=== PATIENT | female | born 1950 | race Caucasian/White ===

== ENCOUNTER 2016-10-25 17:02 | Emergency (ER) | payer OTHER ==
[2016-10-25] MEDS ORDERED: POTASSIUM BICARB 25 MEQ TABLET PO STA (18:35)
[2016-10-25] MEDS ORDERED: POTASSIUM BICARB 25 MEQ TABLET PO ONE (18:44)
[2016-10-25] MEDS ORDERED: CEPHALEXIN 250 MG CAPSULE PO STA (19:05)
[2016-10-25] MEDS ORDERED: CEPHALEXIN 250 MG CAPSULE PO ONE (19:13)
== END 2016-10-25 19:26 | disposition home or self-care (01) ==
DX: L03.313 Cellulitis of chest wall (principal); C50.919 Malignant neoplasm of unspecified site of unspecified female breast; E03.9 Hypothyroidism, unspecified; G62.9 Polyneuropathy, unspecified
CPT/HCPCS: 36415; 80053; 83605; 83690; 85025; 87040; 99283; A9270

== ENCOUNTER 2017-05-30 09:03 | Outpatient (CLI) | payer OTHER ==
[2017-05-30 09:24] LABS: BASOPHILS % (AUTO) 0.9 %; EOSINOPHILS # (AUTO) 0.2 10^3/uL (0.0-0.7); EOSINOPHILS % (AUTO) 3.9 %; HCT - HEMATOCRIT 37.8 % (37.0-47.0); LYMPHOCYTES # (AUTO) 1.1 10^3/uL (1.5-3.5); MEAN CORPUSCULAR HEMOGLOBIN 30.2 pg (27.0-31.0); MEAN CORPUSCULAR HGB CONC 34.5 g/dL (32.0-36.0); MEAN CORPUSCULAR VOLUME 87.5 fL (81.0-99.0); MONOCYTES # (AUTO) 0.5 10^3/uL (0.0-1.0); MONOCYTES % (AUTO) 10.7 %; NEUTROPHILS # (AUTO) 2.7 10^3/uL (1.5-6.6); NEUTROPHILS % (AUTO) 59.5 %; RED BLOOD COUNT 4.32 10^6/uL (4.20-5.40); RED CELL DISTRIBUTION WIDTH 15.3 % (12.0-15.0); UNCORRECTED WHITE BLOOD COUNT 4.6 x10^3/uL; WHITE BLOOD COUNT 4.6 x10^3/uL (4.8-10.8)
[2017-05-30 09:36] LABS: ALBUMIN/GLOBULIN RATIO 1.4 (1.0-2.2); BILIRUBIN,TOTAL 0.8 mg/dL (0.2-1.0); CALCIUM 9.8 mg/dL (8.5-10.3); CREATININE 0.7 mg/dL (0.4-1.0); POTASSIUM 3.4 mmol/L (3.5-5.0); TOTAL PROTEIN 7.4 g/dL (6.7-8.2)
== END 2017-05-30 09:04 | disposition home or self-care (01) ==
LOC: LAB 09:03
PROVIDERS: ATTEND Internal Medicine Hematology & Oncology
DX: C50.911 Malignant neoplasm of unspecified site of right female breast (principal); G60.9 Hereditary and idiopathic neuropathy, unspecified; N39.0 Urinary tract infection, site not specified
CPT/HCPCS: 36415; 80053; 85025

== ENCOUNTER 2018-02-06 07:34 | Outpatient (CLI) | payer OTHER ==
[2018-02-06 07:48] LABS: BASOPHILS % (AUTO) 0.8 %; EOSINOPHILS # (AUTO) 0.1 10^3/uL (0.0-0.7); EOSINOPHILS % (AUTO) 3.4 %; HGB - HEMOGLOBIN 13.6 g/dL (12.0-16.0); LYMPHOCYTES # (AUTO) 1.2 10^3/uL (1.5-3.5); LYMPHOCYTES % (AUTO) 28.2 %; MEAN CORPUSCULAR HEMOGLOBIN 30.7 pg (27.0-31.0); MEAN CORPUSCULAR HGB CONC 34.2 g/dL (32.0-36.0); MEAN CORPUSCULAR VOLUME 89.7 fL (81.0-99.0); MEAN PLATELET VOLUME 8.5 fL (7.9-10.8); MONOCYTES # (AUTO) 0.4 10^3/uL (0.0-1.0); MONOCYTES % (AUTO) 9.1 %; NEUTROPHILS # (AUTO) 2.5 10^3/uL (1.5-6.6); NEUTROPHILS % (AUTO) 58.5 %; PLT - PLATELET COUNT 139 10^3/uL (130-450); RED BLOOD COUNT 4.42 10^6/uL (4.20-5.40); RED CELL DISTRIBUTION WIDTH 13.2 % (12.0-15.0); WHITE BLOOD COUNT 4.3 x10^3/uL (4.8-10.8)
[2018-02-06 08:18] LABS: HB2 TOTAL 14.6 g/dL; HEMOGLOBIN A1C 0.65 g/dL; HEMOGLOBIN A1C % 6.2 % (4.6-6.2)
[2018-02-06 08:44] LABS: ALBUMIN/GLOBULIN RATIO 1.2 (1.0-2.2); ALKALINE PHOSPHATASE 93 IU/L (42-121); ALT ALANINE AMINOTRANSFERASE 91 IU/L (10-60); AST ASPARTATE AMINOTRANSFERASE 80 IU/L (10-42); BILIRUBIN,TOTAL 0.7 mg/dL (0.2-1.0); BUN - BLOOD UREA NITROGEN 11 mg/dL (6-20); CALCIUM 9.4 mg/dL (8.5-10.3); CARBON DIOXIDE - CO2 30 mmol/L (21-32); CHLORIDE 99 mmol/L (101-111); CHOL/HDL RATIO 4.4 (<4.4); CHOLESTEROL 169 mg/dL; CREATININE 0.6 mg/dL (0.4-1.0); GAMMA GLUTAMYL TRANSPEPTIDASE 45 IU/L (8-38); GFR - MDRD 100 (>89); GLUCOSE 129 mg/dL (70-100); HDL CHOLESTEROL 38 mg/dL; LDL CHOLESTEROL,CALCULATED 96 mg/dL; LDL/HDL RATIO 2.5 (<4.4); MAGNESIUM 1.7 mg/dL (1.7-2.8); SODIUM 138 mmol/L (135-145); TOTAL PROTEIN 7.3 g/dL (6.7-8.2); VLDL CHOLESTEROL 35 mg/dL
[2018-02-06 08:52] LABS: CRP - C-REACTIVE PROTEIN < 1.0 mg/dL (0-1.0)
[2018-02-07 12:12] LABS: HOMOCYSTEINE 9.3 umol/L (<10.4)
== END 2018-02-06 07:35 | disposition home or self-care (01) ==
LOC: LAB 07:34
PROVIDERS: ATTEND Naturopath
DX: C50.911 Malignant neoplasm of unspecified site of right female breast (principal); R74.8 Abnormal levels of other serum enzymes; R79.82 Elevated C-reactive protein (CRP); R70.0 Elevated erythrocyte sedimentation rate; G62.0 Drug-induced polyneuropathy; R73.03 Prediabetes; E78.2 Mixed hyperlipidemia
CPT/HCPCS: 36415; 80053; 80061; 82306; 82977; 83036; 83090; 83721; 83735; 83921; 85025; 85651; 86140

== ENCOUNTER 2018-05-12 08:05 | Outpatient (CLI) | payer OTHER ==
[2018-05-12 08:36] LABS: BASOPHILS # (AUTO) 0.1 10^3/uL (0.0-0.1); BASOPHILS % (AUTO) 1.2 %; EOSINOPHILS # (AUTO) 0.3 10^3/uL (0.0-0.7); EOSINOPHILS % (AUTO) 5.6 %; HGB - HEMOGLOBIN 13.6 g/dL (12.0-16.0); MEAN CORPUSCULAR HEMOGLOBIN 31.1 pg (27.0-31.0); MEAN CORPUSCULAR HGB CONC 34.5 g/dL (32.0-36.0); MEAN CORPUSCULAR VOLUME 90.3 fL (81.0-99.0); MEAN PLATELET VOLUME 8.5 fL (7.9-10.8); MONOCYTES # (AUTO) 0.4 10^3/uL (0.0-1.0); MONOCYTES % (AUTO) 8.9 %; NEUTROPHILS # (AUTO) 2.8 10^3/uL (1.5-6.6); NEUTROPHILS % (AUTO) 61.3 %; PLT - PLATELET COUNT 140 10^3/uL (130-450); RED BLOOD COUNT 4.38 10^6/uL (4.20-5.40); RED CELL DISTRIBUTION WIDTH 13.8 % (12.0-15.0); WHITE BLOOD COUNT 4.5 x10^3/uL (4.8-10.8)
[2018-05-12 09:37] LABS: ALBUMIN 3.8 g/dL (3.2-5.5); ALBUMIN/GLOBULIN RATIO 1.1 (1.0-2.2); CALCIUM 9.3 mg/dL (8.5-10.3); CREATININE 0.7 mg/dL (0.4-1.0); TOTAL PROTEIN 7.3 g/dL (6.7-8.2)
== END 2018-05-12 08:06 | disposition home or self-care (01) ==
LOC: LAB 08:05
PROVIDERS: ATTEND Internal Medicine Hematology & Oncology
DX: C50.911 Malignant neoplasm of unspecified site of right female breast (principal); G60.9 Hereditary and idiopathic neuropathy, unspecified
CPT/HCPCS: 36415; 80053; 85025

== ENCOUNTER 2018-06-03 10:36 | Outpatient (CLI) | payer OTHER ==
[2018-06-03 11:30] LABS: ALBUMIN 4.1 g/dL (3.2-5.5); ALBUMIN/GLOBULIN RATIO 1.3 (1.0-2.2); BILIRUBIN,TOTAL 0.7 mg/dL (0.2-1.0); CALCIUM 9.5 mg/dL (8.5-10.3); CREATININE 0.6 mg/dL (0.4-1.0); TOTAL PROTEIN 7.2 g/dL (6.7-8.2)
== END 2018-06-03 10:37 | disposition home or self-care (01) ==
LOC: LAB 10:36
PROVIDERS: ATTEND Internal Medicine Hematology & Oncology
DX: C50.911 Malignant neoplasm of unspecified site of right female breast (principal)
CPT/HCPCS: 36415; 80053

== ENCOUNTER 2019-06-22 10:38 | Emergency (ER) | payer MEDICARE, OTHER ==
--- NOTE | 2019-06-22 11:30 | ED Physician Documentation ---
PD HPI CHEST PAIN - Stated complaint Stated Complaint: SOA - Chief complaint Chief Complaint: Cardiac - History obtained from History obtained from: Patient - History of Present Illness Timing - onset: Yesterday Timing - onset during: Light activity Timing - duration: Days (1) Timing - details: Gradual onset, Still present, Waxing and waning Quality: Aching, Sharp, Pain Location: Right chest (anterior chest and now feeling it under her breast.) Radiation: Neck (initially pain right side of neck yesterday, and right chest now today.) Improved by: Rest Worsened by: Inspiration, Movement. No: Exertion, Palpation Associated symptoms: Shortness of air, Feeling faint / dizzy. No: Nausea, Vomiting, General Weakness, Palpitations, Cough Similar symptoms before: Has not had sx before Recently seen: Not recently seen Review of Systems Constitutional: denies: Fever, Chills, Myalgias Nose: denies: Rhinorrhea / runny nose, Congestion Throat: denies: Sore throat Cardiac: reports: Chest pain / pressure, Pedal edema. denies: Palpitations, Calf pain Respiratory: denies: Dyspnea, Cough, Wheezing GI: denies: Abdominal Pain, Nausea, Vomiting, Diarrhea Skin: denies: Rash, Lesions Musculoskeletal: denies: Extremity swelling Neurologic: reports: Generalized weakness. 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: Breast cancer : Incontinence HEENT: Chronic vision loss Psych: None - Past Surgical History Past Surgical History: Yes Ortho: Other /PARTS COUNTER REPRESENTATIVE: Hysterectomy - Present Medications Home Medications: Ambulatory Orders Medication Instructions Recorded Confirmed Hydrocodone/Acetaminophen 1 tab PO QID 11/26/15 10/25/16 [Hydrocodone-APAP 5-300] Levothyroxine [Synthroid] 15 mcg PO QDAC 11/26/15 10/25/16 Lisinopril 10 mg PO DAILY 11/26/15 10/25/16 Pregabalin [Lyrica] 200 mg PO DAILY 11/26/15 10/25/16 Triamterene/Hydrochlorothiazid 0.5 tab PO DAILY 11/26/15 10/25/16 [Triamterene-Hctz 75-50 mg Tab] raNITIdine [Zantac] 150 mg PO BID 11/26/15 10/25/16 Cephalexin [Keflex] 500 mg PO Q6H 7 Days capsule 10/25/16 Herceptin 10/25/16 Nortriptyline [Pamelor] 100 mg PO DAILY 10/25/16 10/25/16 Hydrocodone/Acetaminophen 1 - 2 each PO Q6H PRN #25 tablet 06/22/19 [Hydrocodon-Acetaminophen 5-325] Naproxen 375 mg PO BID #20 tablet 06/22/19 dexAMETHasone [Decadron] 4 mg PO DAILY #5 tablet 06/22/19 - Allergies Allergies/Adverse Reactions: Allergies Allergy/AdvReac Type Severity Reaction Status Date / Time oxycodone AdvReac Nausea Verified 06/22/19 10:48 - Social History Does the pt smoke?: No Smoking Status: Never smoker Does the pt drink ETOH?: No Does the pt have substance abuse?: No - Immunizations Immunizations are current?: Yes PD ED PE NORMAL - Vitals Vital signs reviewed: Yes - General General: Alert and oriented X 3, No acute distress, Well developed/nourished - HEENT HEENT: Pharynx benign - Neck Neck: Supple, no meningeal sign, No adenopathy - Cardiac Cardiac: RRR, No murmur - Respiratory Respiratory: No respiratory distress, Clear bilaterally, Other (no chestwall tenderness) - Abdomen Abdomen: Soft, Non tender, No organomegaly - Female Female : Deferred - Rectal Rectal: Deferred - Back Back: No CVA TTP - Derm Derm: Normal color, Warm and dry, No rash - Extremities Extremities: No tenderness to palpate, Normal ROM s pain, No calf tenderness / cord, Other (some edema in both legs, pitting. ) - Neuro Neuro: Alert and oriented X 3, No motor deficit, Normal speech Results - Vitals Vitals: Vital Signs - 24 hr 06/22/19 06/22/19 06/22/19 10:48 11:09 11:30 Temperature 37.5 C Heart Rate 101 H 97 99 Respiratory 16 19 23 Rate Blood Pressure 149/85 H 136/83 H 132/79 H O2 Saturation 95 94 93 06/22/19 06/22/19 06/22/19 12:00 12:30 13:00 Temperature Heart Rate 93 97 88 Respiratory 20 22 15 Rate Blood Pressure 136/75 H 135/70 H 124/63 O2 Saturation 95 93 92 06/22/19 06/22/19 06/22/19 13:30 14:00 14:30 Temperature Heart Rate 87 85 83 Respiratory 13 13 12 Rate Blood Pressure 108/62 103/62 106/67 O2 Saturation 94 92 92 Oxygen O2 Source Room air - EKG (time done) 11:02 Rate: Rate (enter#) (96) Rhythm: NSR [place]: Normal Intervals: Normal [place] QRS: Normal Ischemia: Normal ST segments. No: ST elevation c/w ischemia, ST depression - Labs Labs: Laboratory Tests 06/22/19 06/22/19 06/22/19 11:45 11:45 11:45 WBC 8.6 RBC 4.45 Hgb 14.0 Hct 40.5 MCV 91.0 MCH 31.5 H MCHC 34.6 RDW 13.9 Plt Count 145 MPV 10.9 H Neut # (Auto) 6.6 Lymph # (Auto) 1.1 L Gray # (Auto) 0.7 Eos # (Auto) 0.2 Baso # (Auto) 0.0 Absolute Nucleated RBC 0.00 Nucleated RBC % 0.0 D-Dimer 257.0 H Sodium 137 Potassium 3.4 L Chloride 98 L Carbon Dioxide 28 Anion Gap 11.0 BUN 10 Creatinine 0.7 Estimated GFR (MDRD) 83 L Glucose 171 H Calcium 8.8 Magnesium 2.0 Total Bilirubin 1.0 AST 42 ALT 50 Alkaline Phosphatase 63 Troponin I High Sens B-Natriuretic Peptide Total Protein 7.3 Albumin 4.0 Globulin 3.3 Albumin/Globulin Ratio 1.2 Lipase 25 06/22/19 06/22/19 11:45 11:45 WBC RBC Hgb Hct MCV MCH MCHC RDW Plt Count MPV Neut # (Auto) Lymph # (Auto) Gray # (Auto) Eos # (Auto) Baso # (Auto) Absolute Nucleated RBC Nucleated RBC % D-Dimer Sodium Potassium Chloride Carbon Dioxide Anion Gap BUN Creatinine Estimated GFR (MDRD) Glucose Calcium Magnesium Total Bilirubin AST ALT Alkaline Phosphatase Troponin I High Sens 4.4 B-Natriuretic Peptide 23 Total Protein Albumin Globulin Albumin/Globulin Ratio Lipase - Rads (name of study) chest xray Radiology: Prelim report reviewed (some atalectasis right fissure. No infiltrates, PTX nor effusion. ), EMP read contemporaneously, See rad report PD MEDICAL DECISION MAKING - ED course Complexity details: reviewed old records, reviewed results (no signs of serious causes. ), re-evaluated patient, considered differential (consider lung related, heart related, vascular and musculoskeletal. ), d/w patient Departure - Departure Disposition: 01 Home, Self Care Clinical Impression: Right-sided chest pain Condition: Stable Record reviewed to determine appropriate education?: Yes Instructions: ED Chest Pain Pleurisy Follow-Up: Neela Becerra MD [Primary Care Provider] - Prescriptions: dexAMETHasone [Decadron] 4 mg PO DAILY #5 tablet Hydrocodone/Acetaminophen [Hydrocodon-Acetaminophen 5-325] 1 - 2 each PO Q6H PRN #25 tablet PRN Reason: pain Naproxen 375 mg PO BID #20 tablet Comments: No signs of more serious cause of your pain based on EKG, chest x-ray, blood tests. I presume it some inflammation around the lung or musculoskeletal cause. Use naproxen twice daily for the next 7 to 10 days with food. Add Decadron steroid anti-inflammatory daily for 5 more days. Use Tylenol or hydrocodone as needed for pain. Recheck if not improved well over the next several days. Return if worsening or not improving pain or if other symptoms develop such as worse cough, fevers, rash, other symptoms. Discharge Date/Time: 06/22/19 15:00
[2019-06-22] MEDS ORDERED: KETOROLAC 30 MG/ML VIAL IVP STA (12:06)
[2019-06-22] MEDS ORDERED: MORPHINE 10 MG/ML VIAL IVP STA (12:06)
[2019-06-22] MEDS ORDERED: ONDANSETRON 4 MG/2 ML VIAL IVP STA (12:06)
[2019-06-22 12:26] LABS: BASOPHILS % (AUTO) 0.3 %; EOSINOPHILS # (AUTO) 0.2 10^3/uL (0.0-0.7); EOSINOPHILS % (AUTO) 1.7 %; LYMPHOCYTES # (AUTO) 1.1 10^3/uL (1.5-3.5); LYMPHOCYTES % (AUTO) 12.2 %; MEAN CORPUSCULAR HEMOGLOBIN 31.5 pg (27.0-31.0); MEAN CORPUSCULAR HGB CONC 34.6 g/dL (32.0-36.0); MEAN PLATELET VOLUME 10.9 fL (7.9-10.8); MONOCYTES # (AUTO) 0.7 10^3/uL (0.0-1.0); MONOCYTES % (AUTO) 8.6 %; NEUTROPHILS # (AUTO) 6.6 10^3/uL (1.5-6.6); NEUTROPHILS % (AUTO) 76.9 %; PLT - PLATELET COUNT 145 10^3/uL (130-450); RED BLOOD COUNT 4.45 10^6/uL (4.20-5.40); RED CELL DISTRIBUTION WIDTH 13.9 % (12.0-15.0); WHITE BLOOD COUNT 8.6 x10^3/uL (4.8-10.8)
[2019-06-22 12:35] LABS: ALBUMIN/GLOBULIN RATIO 1.2 (1.0-2.2); CALCIUM 8.8 mg/dL (8.5-10.3); CREATININE 0.7 mg/dL (0.4-1.0); TOTAL PROTEIN 7.3 g/dL (6.7-8.2)
--- NOTE | 2019-06-22 13:30 | XRAY Report ---
Reason: right chest pain Procedure Date: 06/22/2019 Accession Number: [id number] / [id number] Procedure: XR - Chest 2 View X-Ray CPT Code: 63176 FULL RESULT: EXAM: CHEST RADIOGRAPHY EXAM DATE: 06/22/2019 01:06 PM. CLINICAL HISTORY: Right chest pain. COMPARISON: None. TECHNIQUE: 2 views. FINDINGS: Lungs/Pleura: Right hemidiaphragm is elevated. There is mild thickening of the minor fissure. There is linear scar or atelectasis at the left lung base. No consolidation or pleural effusion. Mediastinum: Heart size is normal. Trachea is midline. Other: None. IMPRESSION: Mild hypoaeration of right lung. Otherwise negative. RADIA
[2019-06-22] MEDS ORDERED: DEXAMETHASONE 10 MG/ML VIAL IVP STA (14:06)
[2019-06-22 14:46] VITALS: BP 106/67
== END 2019-06-22 15:00 | disposition home or self-care (01) ==
LOC: ED 10:38
DX: R07.89 Other chest pain (principal); I10 Essential (primary) hypertension
CPT/HCPCS: 36415; 71046; 80053; 83690; 83735; 83880; 84484; 85025; 85379; 93005; 96374; 96375; 99284

== ENCOUNTER 2020-07-05 17:40 | Outpatient (CLI) | payer MEDICARE | END 2020-07-05 17:41 | disposition home or self-care (01) | LOC: COV 17:40 | PROVIDERS: ATTEND Family Medicine | DX: R05 Cough (principal); M79.10 Myalgia, unspecified site; R53.83 Other fatigue; R68.83 Chills (without fever); J02.9 Acute pharyngitis, unspecified; R19.7 Diarrhea, unspecified; R09.81 Nasal congestion; R11.2 Nausea with vomiting, unspecified; Z20.828 Contact with and (suspected) exposure to other viral communicable diseases ==

== ENCOUNTER 2021-04-18 07:00 | Outpatient (CLI) | payer MEDICARE | END 2021-04-18 23:59 | disposition home or self-care (01) | LOC: COV 07:00 | PROVIDERS: ATTEND Family Medicine | DX: R53.83 Other fatigue (principal); Z20.822 Contact with and (suspected) exposure to COVID-19 ==

== ENCOUNTER 2024-06-20 14:44 | Emergency (ER) | payer MEDICARE ==
--- NOTE | 2024-06-20 15:20 | ED Physician Documentation ---
History of Present Illness - Stated complaint Stated Complaint: ABD PX,NAUSEA,FAINT - Chief complaint Chief Complaint: Abd Pain - History obtained from History obtained from: Patient, Family - Additonal information Additional information: 73-year-old woman with history of hypertension, type 2 diabetes on Jardiance has been lightheaded for the last few weeks. Last night after eating what think she thinks was a bad peach went to the bathroom and was feeling very dizzy on the toilet. She laid down and then her helped her get up at which point she syncopized without injury. She denies chest pain or trouble breathing. She has not had a small amount of bright red blood per rectum. No vomiting. No headache. 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: Breast cancer : Incontinence HEENT: Chronic vision loss Psych: None Musculoskeletal: None - Past Surgical History Past Surgical History: Yes Ortho: Knee replacement, Other /TOLL REPAIRER CENTRAL OFFICE: Hysterectomy - Present Medications Home Medications: Ambulatory Orders Medication Instructions Recorded Confirmed Hydrocodone/Acetaminophen 1 tab PO QID 11/26/15 10/25/16 [Hydrocodone-APAP 5-300] Levothyroxine [Synthroid] 15 mcg PO QDAC 11/26/15 10/25/16 Pregabalin [Lyrica] 200 mg PO DAILY 11/26/15 10/25/16 Triamterene/Hydrochlorothiazid 0.5 tab PO DAILY 11/26/15 10/25/16 [Triamterene-Hctz 75-50 mg Tab] lisinopriL [Lisinopril] 10 mg PO DAILY 11/26/15 10/25/16 raNITIdine [Zantac] 150 mg PO BID 11/26/15 10/25/16 Herceptin 10/25/16 Nortriptyline [Pamelor] 100 mg PO DAILY 10/25/16 10/25/16 cephALEXin [Keflex] 500 mg PO Q6H 7 Days capsule 10/25/16 Hydrocodone/Acetaminophen 1 - 2 each PO Q6H PRN #25 tablet 06/22/19 [Hydrocodon-Acetaminophen 5-325] Naproxen 375 mg PO BID #20 tablet 09/23/19 dexAMETHasone [Decadron] 4 mg PO DAILY #5 tablet 06/22/19 Ciprofloxacin HCl [Cipro] 500 mg PO BID #14 tablet 06/20/24 metroNIDAZOLE [Flagyl] 500 mg PO TID 7 Days #21 tablet 06/20/24 - Allergies Allergies/Adverse Reactions: Allergies Allergy/AdvReac Type Severity Reaction Status Date / Time oxycodone AdvReac Nausea Verified 06/20/24 14:47 - Social History Does the pt smoke?: No Smoking Status: Never smoker Does the pt drink ETOH?: No Does the pt have substance abuse?: No - Immunizations Immunizations are current?: Yes PD ED PE NORMAL - Vitals Vital signs reviewed: Yes (Hypotensive which resolved on the monitor without intervention. Borderline) - General General: Alert and oriented X 3, No acute distress - HEENT HEENT: PERRL, EOMI - Neck Neck: Supple, no meningeal sign, No bony TTP - Cardiac Cardiac: RRR, No murmur - Respiratory Respiratory: No respiratory distress, Clear bilaterally - Abdomen Abdomen: Non tender - Extremities Extremities: No edema, No calf tenderness / cord - Neuro Neuro: Alert and oriented X 3 - Psych Psych: Normal mood, Normal affect Results - Vitals Vitals: Vital Signs - 24 hr 06/20/24 06/20/24 06/20/24 14:47 15:23 15:30 Temperature 36.3 C L Heart Rate 100 89 Respiratory 16 19 16 Rate Blood Pressure 88/61 L 119/70 119/61 O2 Saturation 96 90 L 96 06/20/24 06/20/24 06/20/24 16:00 16:30 17:00 Temperature Heart Rate 86 85 92 Respiratory 20 16 16 Rate Blood Pressure 110/71 108/73 105/72 O2 Saturation 99 94 95 06/20/24 18:00 Temperature Heart Rate 87 Respiratory 16 Rate Blood Pressure 136/70 H O2 Saturation 95 Oxygen O2 Source Room air - EKG (time done) 1457 EKG releavant findings:: EKG personally interpreted by author of this note. Relevant findings are: Rate: Rate (enter#) (92) Rhythm: NSR [place]: Normal Intervals: Normal [place], Prolonged QT (488) QRS: Normal Ischemia: Normal ST segments Computer interpretation: Agree with computer - Labs Labs: Laboratory Tests 06/20/24 06/20/24 06/20/24 15:10 15:10 15:10 WBC 12.5 H RBC 5.38 Hgb 14.7 Hct 46.3 MCV 86.1 MCH 27.3 MCHC 31.7 L RDW 14.6 Plt Count 264 MPV 11.4 H Neut # (Auto) 9.8 H Lymph # (Auto) 1.6 [place] # (Auto) 0.8 Eos # (Auto) 0.2 Baso # (Auto) 0.1 Absolute Nucleated RBC 0.00 Nucleated RBC % 0.0 Sodium 130 L Potassium 3.8 Chloride 94 L Carbon Dioxide 23 Anion Gap 13.0 BUN 35 H Creatinine 1.5 H Estimated GFR (MDRD) 34 L Glucose 240 H Lactic Acid Calcium 9.9 Magnesium 2.2 Total Bilirubin 1.1 H AST 47 H ALT 61 H Alkaline Phosphatase 61 Troponin I High Sens 6.3 Total Protein 7.5 Albumin 4.8 Globulin 2.7 Albumin/Globulin Ratio 1.8 Urine Color Urine Clarity Urine pH Ur Specific [place] Urine Protein Urine Glucose (UA) Urine Ketones Urine Occult Blood Urine Nitrite Urine Bilirubin Urine Urobilinogen Ur Leukocyte Esterase Urine RBC Urine WBC Ur Squamous Epith Cells Urine Bacteria Ur Microscopic Review Urine Culture Comments 06/20/24 06/20/24 15:27 17:00 WBC RBC Hgb Hct MCV MCH MCHC RDW Plt Count MPV Neut # (Auto) Lymph # (Auto) [place] # (Auto) Eos # (Auto) Baso # (Auto) Absolute Nucleated RBC Nucleated RBC % Sodium Potassium Chloride Carbon Dioxide Anion Gap BUN Creatinine Estimated GFR (MDRD) Glucose Lactic Acid 1.5 Calcium Magnesium Total Bilirubin AST ALT Alkaline Phosphatase Troponin I High Sens Total Protein Albumin Globulin Albumin/Globulin Ratio Urine Color YELLOW Urine Clarity HAZY Urine pH 6.0 Ur Specific [place] 1.010 Urine Protein NEGATIVE Urine Glucose (UA) >=1000 H Urine Ketones NEGATIVE Urine Occult Blood NEGATIVE Urine Nitrite NEGATIVE Urine Bilirubin NEGATIVE Urine Urobilinogen 0.2 (NORMAL) Ur Leukocyte Esterase TRACE H Urine RBC None Seen Urine WBC 4-5 Ur Squamous Epith Cells RARE Squamous Urine Bacteria None Seen Ur Microscopic Review INDICATED Urine Culture Comments INDICATED - Rads (name of study) Ct A/P- diverticulitis/colitis Relevant Findings:: Final report received, EMP independent interpretation of test PD Medical Decision Making - ED course ED course: 73-year-old woman With history of cirrhosis and NIELSON had abdominal cramping last night followed by syncopal episode. EKG demonstrates borderline profound QT and she was hypotensive on arrival. She is a benign belly but her white count was elevated with an otherwise unremarkable CBC with evidence of prerenal azotemia mild elevation of her liver enzymes. This was followed by abdominal imaging which demonstrated likely diverticulitis by CT. She has had a colonoscopy she thinks within the last 6 to 9 months. She has an allergy to amoxicillin so started on Cipro and Flagyl. She does not drink alcohol at all. She did receive 2 L of IV fluids here and recommended she talk to her doctor about the triamterene/HCTZ. Departure - Departure Disposition: Home, Self Care Clinical Impression: Diverticulitis, Liver lesion Syncope Qualifiers: Syncope type: vasovagal syncope Qualified Code(s): R55 - Syncope and collapse Abdominal pain Qualifiers: Abdominal location: generalized Qualified Code(s): R10.84 - Generalized abdominal pain Condition: Good Record reviewed to determine appropriate education?: Yes Instructions: ED Diverticulitis, ED Syncope Vasovagal Prescriptions: Ciprofloxacin HCl [Cipro] 500 mg PO BID #14 tablet metroNIDAZOLE [Flagyl] 500 mg PO TID 7 Days #21 tablet Comments: You were seen today after a passing out episode on the toilet last night during abdominal cramping. We found is that you are probably dehydrated, and you should discuss whether or not the double diuretic blood pressure medicine is right for you with your doctor. He also had elevated blood sugar, elevated white count mildly, and elevation of the liver enzymes. The elevation of the liver enzymes caused us to check imaging of your abdomen. The CAT scan demonstrated likely colitis/diverticulitis. On the ultrasound, the radiologist did note the cirrhosis which you are already aware of, there was a 1 cm lesion in your liver for which he recommends that you eventually have an MRI of your liver and follow-up. Please mention this to your primary care physician. Forms: PCP List
[2024-06-20] MEDS: SODIUM CHLORIDE 0.9% 1,000 ML IV STA ×2 (15:25→18:02)
[2024-06-20 15:28] LABS: BASOPHILS # (AUTO) 0.1 10^3/uL (0.0-0.1); BASOPHILS % (AUTO) 0.6 %; EOSINOPHILS # (AUTO) 0.2 10^3/uL (0.0-0.7); EOSINOPHILS % (AUTO) 1.3 %; HCT - HEMATOCRIT 46.3 % (37.0-47.0); HGB - HEMOGLOBIN 14.7 g/dL (12.0-16.0); LYMPHOCYTES # (AUTO) 1.6 10^3/uL (1.5-3.5); LYMPHOCYTES % (AUTO) 12.7 %; MEAN CORPUSCULAR HEMOGLOBIN 27.3 pg (27.0-31.0); MEAN CORPUSCULAR HGB CONC 31.7 g/dL (32.0-36.0); MEAN CORPUSCULAR VOLUME 86.1 fL (81.0-99.0); MEAN PLATELET VOLUME 11.4 fL (7.9-10.8); MONOCYTES # (AUTO) 0.8 10^3/uL (0.0-1.0); MONOCYTES % (AUTO) 6.6 %; NEUTROPHILS # (AUTO) 9.8 10^3/uL (1.5-6.6); NEUTROPHILS % (AUTO) 78.4 %; PLT - PLATELET COUNT 264 10^3/uL (130-450); RED BLOOD COUNT 5.38 10^6/uL (4.20-5.40); RED CELL DISTRIBUTION WIDTH 14.6 % (12.0-15.0); WHITE BLOOD COUNT 12.5 x10^3/uL (4.8-10.8)
[2024-06-20 15:42] LABS: ALBUMIN 4.8 g/dL (3.2-5.5); ALBUMIN/GLOBULIN RATIO 1.8 (1.0-2.2); BILIRUBIN,TOTAL 1.1 mg/dL (0.2-1.0); CALCIUM 9.9 mg/dL (8.5-10.3); CREATININE 1.5 mg/dL (0.6-1.3); MAGNESIUM 2.2 mg/dL (1.7-2.3); POTASSIUM 3.8 mmol/L (3.5-4.5); TOTAL PROTEIN 7.5 g/dL (6.4-8.9)
[2024-06-20] MEDS ORDERED: iohexoL-300 100 ML VIAL ONE ×2 (17:03→17:22)
[2024-06-20 17:08] LABS: BILIRUBIN,URINE NEGATIVE (NEGATIVE); GLUCOSE, URINE (UA) >=1000 mg/dL (NEGATIVE); KETONES,URINE (UA) NEGATIVE (NEGATIVE); LEUKOCYTE ESTERASE, URINE TRACE (NEGATIVE); NITRITE,URINE NEGATIVE (NEGATIVE); OCCULT BLOOD,URINE NEGATIVE (NEGATIVE); PROTEIN,URINE NEGATIVE (NEGATIVE); UROBILINOGEN,URINE 0.2 (NORMAL) E.U./dL (NORMAL)
[2024-06-20 17:16] LABS: CLARITY,URINE HAZY (CLEAR)
[2024-06-20 17:17] LABS: BACTERIA,URINE None Seen /HPF (None Seen); RBC,URINE None Seen /HPF (0-5); SQUAMOUS EPITHELIAL CELL,UR RARE Squamous (<= Few)
--- NOTE | 2024-06-20 17:53 | CT Report ---
PROCEDURE: Abdomen/Pelvis W INDICATIONS: IV only, abd pain CONTRAST: omni, 100 TECHNIQUE: After the administration of intravenous contrast, a CT scan of the abdomen and pelvis was performed. Images were recorded and evaluated at appropriate window settings. Reformats: coronal and sagittal. F or radiation dose reduction, the following was used: automated exposure control, adjustment of mA and /or kV according to patient size. COMPARISON: None. FINDINGS: Image quality: Diagnostic. Lower chest: Unremarkable. Liver: No solid mass. Hepatomegaly with slightly lobular contours and cannulation of the umbilical ve in. Hepatic steatosis. Gallbladder: Surgically absent. Biliary tree: No intrahepatic or extrahepatic dilation, accounting for age. Spleen: Splenomegaly Pancreas: No pancreatic ductal dilation. Adrenals: No adrenal nodule. Kidneys and ureters: No hydronephrosis. No renal cystic lesion which requires follow up. No solid mas s. Stomach, bowel and peritoneum: Diffuse thickening of a long segment of transverse colon through the s plenic flexure with a few colonic diverticula. The appendix is normal. No pathologic free fluid. No f ree air Lymph nodes: No central or retroperitoneal adenopathy. Vessels: No infrarenal aortic aneurysm. Patent portal vein. PELVIS Reproductive organs: Unremarkable. Bladder: No abnormal wall thickening, accounting for underdistention. Pelvic lymph nodes: No pelvic adenopathy by size criteria. Bones: No aggressive osseous abnormality. Other: No significant ventral or inguinal hernia. IMPRESSION: Thickening of the transverse colon within the splenic flexure concerning for colitis versus diverticu litis. Hepatomegaly with morphological changes suggestive of early cirrhosis. Reviewed by: Charles Daniel MD on 06/20/2024 4:52 PM KIRAN Approved by: Charles Daniel MD on 06/20/2024 4:52 PM AKDT Station ID: [id number]
[2024-06-20] MEDS: iohexoL-300 100 ML VIAL IVP ONE (18:09)
--- NOTE | 2024-06-20 18:19 | Ultrasound Report ---
PROCEDURE: Abdomen Limited INDICATIONS: abd pain, elevated lfts TECHNIQUE: Real-time focused scanning was performed of the abdomen, with image documentation. COMPARISONS: None. FINDINGS: Liver: Liver measures 18.8 cm. The liver is diffusely heterogeneous and has a slightly nodular and c oarsened appearance. Hypoechoic lesion measuring 1 cm within the medial portion of the liver without appreciable internal flow. Gallbladder: Gallbladder surgically absent. Biliary ducts: Intrahepatic bile ducts are non-dilated. Extrahepatic bile duct caliber measures 8 m m. Normal is 6-7 mm or less in diameter, or 10 mm or less post-cholecystectomy. Pancreas: Visualized portions of the pancreas are sonographically normal. Right kidney: Normal in size and echotexture. Right kidney measures 10.9 cm long. No hydronephrosis or nephrolithiasis. No solid masses. No complex renal cystic lesions which require follow-up. Mild r enal pelviectasis. IVC: Intrahepatic inferior vena cava is patent. Miscellaneous: No free abdominal fluid. IMPRESSION: Cirrhotic appearance of liver with a 1 cm hypodensity not completely delineated by ultrasound. Consid er nonemergent outpatient MRI follow-up. Reviewed by: Charles Daniel MD on 06/20/2024 5:18 PM KIRAN Approved by: Charles Daniel MD on 06/20/2024 5:18 PM KIRAN Station ID: [id number]
[2024-06-20] MEDS: metroNIDAZOLE 250 MG TABLET PO STA (18:22)
[2024-06-20] MEDS: CIPROFLOXACIN 250 MG TABLET PO STA (18:22)
[2024-06-20 19:15] VITALS: BP 137/81; O2SAT 98
== END 2024-06-20 19:06 | disposition home or self-care (01) ==
LOC: ED 14:44
DX: K57.32 Diverticulitis of large intestine without perforation or abscess without bleeding (principal); K76.9 Liver disease, unspecified; R55 Syncope and collapse; I10 Essential (primary) hypertension; E03.9 Hypothyroidism, unspecified; E11.42 Type 2 diabetes mellitus with diabetic polyneuropathy; Z79.84 Long term (current) use of oral hypoglycemic drugs; Z85.3 Personal history of malignant neoplasm of breast; Z79.899 Other long term (current) drug therapy; K75.81 Nonalcoholic steatohepatitis (NASH); K74.60 Unspecified cirrhosis of liver
CPT/HCPCS: 36415; 74177; 76705; 80053; 81001; 83605; 83735; 84484; 85025; 87077; 87086; 87181; 93005; 99284; A9270; Q9967; 81003